=== PATIENT | female | born 1950 | race African-American/Black ===

== ENCOUNTER 2017-03-01 20:58 | Inpatient (IN) | payer MEDICARE, OTHER ==
[~2017-03-01] VITALS: Ht 160 cm; Wt 87.3 kg
[~2017-03-01 20:58] MED LIST: ASPI-535; BACL10TA; ESOM40CA; FLUT1DIS23; GABA300C16; HIGH BP MED PO; IPRA14.76; METO10TA96; MONT10TA21; SERT50TA6; SIMV20TA2; ZOLP5TAB; [UNRECOGNIZED DRUG - CODE]
[2017-03-01 21:00] VITALS: Ht 160 cm; Wt 87.3 kg
[2017-03-01] MEDS ORDERED: SOD CHLORIDE 0.9% 500 ML IV STA (21:13)
[2017-03-01 21:28] LABS: BASOPHIL # 0.1 10^3/ul (0.0-0.1); BASOPHILS % 1.1 % (0.0-2.0); EOSINOPHILS % 0.2 % (0.0-7.0); HEMATOCRIT 37.6 % (37.0-47.0); LYMPHOCYTES # 3.6 10^3/ul (0.8-2.9); LYMPHOCYTES % 33.9 % (15.0-51.0); MEAN CORPUSCULAR HGB CONC 31.9 g/dl (32.0-37.0); MEAN CORPUSCULAR VOLUME 100.3 fl (82.0-101.0); MEAN PLATELET VOLUME 10.7 fl (7.4-10.4); MONOCYTE # 0.8 10^3/ul (0.3-0.9); MONOCYTES % 7.8 % (0.0-11.0); NEUTROPHILS % 56.7 % (39.0-77.0); PLATELET COUNT 266 10^3/UL (140-415); RED BLOOD COUNT 3.75 10^6/ul (4.20-5.40); RED CELL DISTRIBUTION WIDTH 13.3 % (11.5-14.5); WHITE BLOOD COUNT 10.5 10^3/ul (4.8-10.8)
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
[2017-03-01 21:48] LABS: INR 0.94; PROTIME 12.6 Sec (12.2-14.2)
[2017-03-01 21:49] LABS: PARTIAL THROMBOPLASTIN TIME 27.6 Sec (25.0-35.0)
[2017-03-01 21:53] LABS: ALANINE AMINOTRANSFERASE 21 IU/L (13-69); ALBUMIN 3.9 g/dl (3.3-4.9); ALKALINE PHOSPHATASE 86 IU/L (42-121); ANION GAP 18 (8-16); ASPARTATE AMINO TRANSFERASE 15 IU/L (15-46); BILIRUBIN,INDIRECT 0.1 mg/dl (0-1.1); BILIRUBIN,TOTAL 0.1 mg/dl (0.2-1.3); BLOOD UREA NITROGEN 21 mg/dl (7-20); CALCIUM 9.1 mg/dl (8.4-10.2); CARBON DIOXIDE 26 mmol/L (21-31); CHLORIDE 106 mmol/L (97-110); CREATININE 0.89 mg/dl (0.44-1.00); GLUCOSE 99 mg/dl (70-220); POTASSIUM 3.8 mmol/L (3.5-5.1); SODIUM 146 mmol/L (135-144); TOTAL PROTEIN 6.9 g/dl (6.1-8.1)
[2017-03-01 21:55] LABS: ETHANOL < 10.0 mg/dl
[2017-03-01 22:08] LABS: T3 UPTAKE 31.1 % (23.5-40.5)
[2017-03-01 22:12] LABS: TROPONIN-I < 0.012 ng/ml (0.00-0.12)
--- NOTE | 2017-03-01 23:12 | RADRPT ---
PROCEDURE: CT Brain without contrast. CLINICAL INDICATION: Altered Mental Status TECHNIQUE: A multiplanar CT of the brain was performed on a CT scanner utilizing axial imaging fro m the skull base through the vertex without IV contrast. The CTDIvol is 43.22 mGy and the DLP is 85 0.134 mGycm. One or more of the following dose reduction techniques were utilized: Automated expos ure control, adjustment of the mA and/or kV according to patient size, use of iterative reconstructi on technique. COMPARISON: None FINDINGS: No evidence of intracranial hemorrhage or abnormal extra-axial fluid collection. Encephalomalacia of the right the frontal operculum and anterior temporal tip as well as right basal ganglia and thalam us. Extensive surrounding hypo attenuation of the right frontal lobe compatible with gliosis. Ex v acuo dilatation of the right lateral ventricle. Patchy periventricular low attenuation compatible with sequelae of chronic microvascular ischemic in jury. Mild prominence of the ventricles and subarachnoid spaces compatible with mild cerebral volum e loss. The basal cisterns, posterior fossa contents, brainstem, craniocervical junction, orbits, pituitary axis, paranasal sinuses, mastoid air cells, and calvarium are unremarkable. IMPRESSION: 1. No intracranial hemorrhage or acute intracranial abnormality. 2. Large area of encephalomalacia compatible with remote the right MCA territory infarct and ex vac uo dilatation of the right lateral ventricle. No new transcortical ischemic infarct. Early ischemic injury may be occult to CT imaging and diffusion weighted MRI may be considered as clinically warra nted. 3. Mild chronic microvascular ischemic changes and age related volume loss. RPTAT:AAJJ Physician Jamia Date Time Electronically viewed and signed by Physician Jamia on 03/01/2017 23:12 DELMIS/
--- NOTE | 2017-03-01 23:18 | RADRPT ---
PROCEDURE: XR Chest. CLINICAL INDICATION: Altered mental status TECHNIQUE: Single AP portable chest. COMPARISON: No prior Chest x-ray FINDINGS: The cardiomediastinal silhouette is within normal limits of size. The lungs are clear without pleur al effusion or focal consolidation. No pneumothorax. The osseous structures and soft tissues are unr emarkable. IMPRESSION: 1. No evidence for active cardiopulmonary disease. RPTAT:AAJJ Gulshan Cutler Physician Date Time Electronically viewed and signed by Gulshan Cutler Physician on 03/01/2017 23:17 DELMIS/
[2017-03-01] MEDS ORDERED: ONDANSETRON 4 MG INJ IV PRN (23:30)
[2017-03-01] MEDS ORDERED: ACETAMINOPHEN 325 MG TAB PO PRN (23:30)
[2017-03-02] MEDS ORDERED: ONDANSETRON 4 MG INJ IV PRN
[2017-03-02] MEDS ORDERED: ACETAMINOPHEN 325 MG TAB PO PRN
[2017-03-02] MEDS ORDERED: MAGNESIUM HYDROXIDE 30ML CUP PO PRN
[2017-03-02] MEDS ORDERED: NACL 0.9% 3 ML SYG IV SCH
[2017-03-02] MEDS: HYDROCODONE/APAP (5/325) TAB PO PRN ×2 (00:35→20:17)
[2017-03-02] MEDS: PANTOPRAZOLE (EC) 40 MG TAB PO SCH (06:05)
[2017-03-02 06:11] LABS: BASOPHIL # 0.1 10^3/ul (0.0-0.1); BASOPHILS % 1.3 % (0.0-2.0); EOSINOPHILS # 0.1 10^3/ul (0.0-0.5); EOSINOPHILS % 1.4 % (0.0-7.0); HEMOGLOBIN 11.5 g/dl (12.0-16.0); LYMPHOCYTES # 3.9 10^3/ul (0.8-2.9); MEAN CORPUSCULAR HEMOGLOBIN 31.3 pg (29.0-33.0); MEAN CORPUSCULAR HGB CONC 31.1 g/dl (32.0-37.0); MEAN CORPUSCULAR VOLUME 100.5 fl (82.0-101.0); MEAN PLATELET VOLUME 10.6 fl (7.4-10.4); MONOCYTE # 0.7 10^3/ul (0.3-0.9); MONOCYTES % 7.1 % (0.0-11.0); NEUTROPHILS % 48.8 % (39.0-77.0); PLATELET COUNT 248 10^3/UL (140-415); RED BLOOD COUNT 3.68 10^6/ul (4.20-5.40); RED CELL DISTRIBUTION WIDTH 13.5 % (11.5-14.5); WHITE BLOOD COUNT 9.5 10^3/ul (4.8-10.8)
[2017-03-02 06:34] LABS: ALBUMIN 3.4 g/dl (3.3-4.9); ALBUMIN/GLOBULIN RATIO 1.3; BILIRUBIN,INDIRECT 0.2 mg/dl (0-1.1); BILIRUBIN,TOTAL 0.2 mg/dl (0.2-1.3); CALCIUM 8.9 mg/dl (8.4-10.2); CHOL/HDL RATIO 2.4 RATIO; CREATININE 0.73 mg/dl (0.44-1.00); MAGNESIUM 2.2 mg/dl (1.7-2.5); POTASSIUM 4.3 mmol/L (3.5-5.1)
[2017-03-02 07:03] LABS: THYROID STIMULATING HORMONE 1.64 MIU/L (0.465-4.680)
--- NOTE | 2017-03-02 07:05 | RADRPT ---
PROCEDURE: Ultrasound examination of the carotid arteries with Doppler. CLINICAL INDICATION: Syncope. TECHNIQUE: Real time sonography, color Doppler and spectral the pattern analysis and velocity sarah urements were performed to evaluate both carotid arterial system. COMPARISON: None. FINDINGS: There is mild atherosclerotic plaque within the right carotid bifurcation region. There is mild ath erosclerotic plaque within the left carotid bifurcation region. There is no hemodynamically signifi cant carotid stenosis bilaterally. Antegrade flow is demonstrated within bilateral vertebral arteri es. RIGHTPSV (cm/s)EDV (cm/s)ICA/CCA ratio CCA39.5 10.9 1.0 PICA6.0 18.2 MICA32.2 10.4 ECA51.5 LEFTPSV (cm/s)EDV (cm/s)ICA/CCA ratio CCA45.7 15.9 1.4 PICA41.8 15.2 MICA64.2 22.9 ECA58.0 IMPRESSION: No hemodynamically significant carotid stenosis bilaterally. Antegrade flow within bilateral vertebral arteries. .Td Cobb MD, MD Date Time Electronically viewed and signed by .Td Cobb MD, MD on 03/02/2017 07:04 .T/
[2017-03-02 10:11] VITALS: TEMP 97.9
[2017-03-02] MEDS: ENOXAPARIN 40 MG/0.4 ML SYG SC SCH (10:44)
[2017-03-02] MEDS: GABAPENTIN 300 MG CAP PO SCH (10:45)
[2017-03-02] MEDS: MONTELUKAST 10 MG TAB PO SCH (10:45)
[2017-03-02] MEDS: DOCUSATE SODIUM 100 MG CAP PO PRN (10:45)
[2017-03-02] MEDS: ASPIRIN (EC) 81 MG TAB PO SCH (10:45)
--- NOTE | 2017-03-02 12:30 | RADRPT ---
Echocardiogram Report Patient Name: LUIZ BRO Gender: Female Date: 1950 Study Date: 02-Mar-2017 Pillowcase Maker: Sherif [facility] Location: -1 Ref. Physician: TIFFANIE MACIAS Quality: Adequate Procedures: Transthoracic echocardiogram with complete 2D, M-Mode, and doppler examination. Indications: Syncope. 2D/M Mode Doppler Measurement Value Normal Ranges Measurement Value Normal Ranges LVIDd 2D 3.9 3.5 - 5.6 cm AV Peak Jelani 1.3 m/sec LVIDs 2D 2.7 2.1 - 4.1 cm AV Peak PG 7.0 mmHg FS 2D 30.9 % LVOT Peak Jelani 0.9 m/sec LVPWd 2D 1.3 0.6 - 1.1 cm LVOT Peak PG 3.0 mmHg IVSd 2D 1.3 0.6 - 1.1 cm MV E Peak Jelani 0.8 m/sec IVS/LVPW 2D 1.0 MV A Peak Jelani 0.8 m/sec AoR Diam 2D 2.5 2.0 - 3.7 cm MV E/A 1.0 LA/Ao 2D 1 0 - 1 MV Decel Time 204 msec EDV 2D 59.8 cm3 MV E/A 1.0 ESV 2D 19.7 cm3 LA Dimen 2D 2.8 2.3 - 4.0 cm Findings Left Ventricle: Normal left ventricular systolic function. Normal left ventricular cavity size. Mild concentric left ventricular hypertrophy. Ejection fraction is visually estimated at 60 %. Abnormal Diastolic Function. Right Ventricle: Normal right ventricular size. Normal right ventricular systolic function. Left Atrium: The left atrium is normal in size. Right Atrium: The right atrium is normal in size. Mitral Valve: Mild mitral leaflet calcification. Mild mitral annular calcification. Trace mitral regurgitation. Aortic Valve: No significant aortic stenosis or insufficiency. Aortic sclerosis without stenosis. Tricuspid Valve: Normal appearance of the tricuspid valve. Unable to obtain RVSP due to minimal presence of tricuspid regurgitation. There is trace tricuspid regurgitation. Pulmonic Valve: Pulmonic valve not well visualized. There is trace pulmonic regurgitation. Pericardium: Trivial pericardial effusion. Aorta: Normal aortic root. IVC: Normal size and poor respiratory collapse consistent with elevated right atrial pressure. Conclusions 1.Normal left ventricular systolic function. Normal left ventricular cavity size. Mild concentric left ventricular hypertrophy. Ejection fraction is visually estimated at 60 %. Abnormal Diastolic Function. 2.Mild mitral leaflet calcification. Mild mitral annular calcification. Trace mitral regurgitation. 3.No significant aortic stenosis or insufficiency. Aortic sclerosis without stenosis. 4.Normal appearance of the tricuspid valve. Unable to obtain RVSP due to minimal presence of tricuspid regurgitation. There is trace tricuspid regurgitation. Electronically Signed By: Gurvinder Rodgers 02-Mar-2017 12:29:44 -0700 Patient Name: LUIZ BRO Study Date: 02-Mar-2017 [id number]
[2017-03-02 13:29] LABS: ADD UMIC YES; UR ASCORBIC ACID 40 mg/dL (NEGATIVE); UR BILIRUBIN (Dip) NEGATIVE (NEGATIVE); UR BLOOD (Dip) NEGATIVE (NEGATIVE); UR CLARITY SLIGHTLY CLOUDY (CLEAR); UR COLOR YELLOW (YELLOW); UR GLUCOSE (Dip) NEGATIVE (NEGATIVE); UR KETONES (Dip) NEGATIVE (NEGATIVE); UR LEUKOCYTE ESTERASE (Dip) NEGATIVE Leu/ul (NEGATIVE); UR NITRITE (Dip) POSITIVE (NEGATIVE); UR RBC 0 /HPF (0-5); UR SPECIFIC GRAVITY (Dip) 1.014 (1.003-1.030); UR TOTAL PROTEIN (Dip) NEGATIVE (NEGATIVE); UR UROBILINOGEN (Dip) NEGATIVE (NEGATIVE)
[2017-03-02 13:42] LABS: OPIATES Positive (NEGATIVE)
[2017-03-02 13:50] LABS: BARBITURATES Negative (NEGATIVE); BENZODIAZEPINES Negative (NEGATIVE); CANNABINOIDS Negative (NEGATIVE); COCAINE Negative (NEGATIVE)
[2017-03-02 16:44] VITALS: BP 163/74; PULSE 88; RESP 18
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
[2017-03-02 21:47] VITALS: BP 153/58; RESP 20
[2017-03-02 22:31] VITALS: PULSE 69
[2017-03-02] MEDS: morphine 2 MG INJ IV PRN (22:52)
[2017-03-02] MEDS: LORAZEPAM 2 MG INJ IV PRN (22:52)
[2017-03-02 23:58] VITALS: BP 162/81; RESP 20
[2017-03-03] VITALS (10 sets, daily range): BP systolic 133–157; BP diastolic 66–117; PULSE 67–94; RESP 16–21
[2017-03-03] MEDS: PANTOPRAZOLE (EC) 40 MG TAB PO SCH (06:03)
[2017-03-03] MEDS: ASPIRIN (EC) 81 MG TAB PO SCH (09:09)
[2017-03-03] MEDS: MONTELUKAST 10 MG TAB PO SCH (09:09)
[2017-03-03] MEDS: GABAPENTIN 300 MG CAP PO SCH (09:09)
[2017-03-03] MEDS: ENOXAPARIN 40 MG/0.4 ML SYG SC SCH (09:10)
--- NOTE | 2017-03-03 17:22 | RADRPT ---
PROCEDURE: MRI Brain without contrast. CLINICAL INDICATION: Syncope. TECHNIQUE: An MRI of the brain was performed utilizing the following sequences: Sagittal and axial T1 weighted, axial T2 weighted, axial diffusion weighted with ADC mapping, coronal GRE, and axial F LAIR. COMPARISON: Brain CT 03/01/2017. FINDINGS: Multiple images are degraded by motion. Area of encephalomalacia of the right the frontal lobe/operculum and anterior temporal lobe as well as right basal ganglia and thalamus with associated surrounding gliosis likely represents sequela of prior infarct in the right middle cerebral artery distribution. There is associated ex vacuo dilata tion of the right lateral ventricle. There is associated mild surrounding gradient susceptibility ar tifact indicative of hemosiderin. No diffusion weighted abnormalities are seen to suggest the presence of acute ischemia or recent inf arct. No hypointense signal abnormalities are seen on the GRE images to suggest the presence of blo od degradation products. There is no evidence of intracranial hemorrhage, mass effect, or midline s hift. No extra-axial fluid collections are seen. The ventricles and sulci are otherwise mildly enlar ged indicative of volume loss. There are additional mild foci of T2 FLAIR hyperintensity in the white matter, which are nonspecific in etiology but likely reflect chronic small vessel ischemic changes. No abnormal intracranial vascular flow void is noted. The visualized paranasal sinuses demonstrate m ild scattered mucosal thickening. IMPRESSION: 1. Suboptimal motion degraded study. No acute intracranial hemorrhage, infarction or mass. 2. Large area of encephalomalacia likely represent sequela of old infarct in the right MCA distribu tion with associated hemosiderin. 3. Mild chronic small vessel ischemic changes. 4. Mild generalized cerebral volume loss. RPTAT: AA .Gino Covington MD, MD Date Time Electronically viewed and signed by .Gino Covington MD, MD on 03/03/2017 17:21 .N/
[2017-03-03] MEDS: CEFTRIAXONE 1 GM/50 ML (PMX) 50 ML IVPB SCH (18:00)
[2017-03-03] MEDS: morphine 2 MG INJ IV PRN (19:44)
--- NOTE | 2017-03-03 20:44 | PN ---
DATE: SUBJECTIVE DATA: The patient is currently undergoing MRI of the brain. The patient initially presented with encephalopathy and syncope. Noted the urine culture results, which was positive. The UA was markedly positive. In addition, awaiting Cardiology input as the patient has been experiencing on and off chest pain. The patient is slightly hypertensive blood pressure in the 150s. PHYSICAL EXAMINATION: VITAL SIGNS: Temperature 99.3. She had a low-grade fever. Pulse 81, respirations 16, blood pressure 154/170. Saturation is 94-99 percent. The patient is currently undergoing MRI, so physical exam to follow. MEDICATIONS: 1. Rocephin I started today 1 g q.24 hours. 2. Lovenox 40 mg subcu daily. 3. Aspirin 81 mg daily. 4. Neurontin 300 daily. 5. Singular 10 mg daily. 6. Protonix 20 mg daily. 7. Ativan 0.5 q.6h p.r.n. 8. Zofran p.r.n. 9. Tylenol p.r.n. 10. Spencer p.r.n. 11. Morphine p.r.n. 12. Colace p.r.n. 13. Milk of magnesia p.r.n. MRI again is pending as patient is currently having the MRI done. ASSESSMENT AND PLAN: This is a 66-year-old, female with a history of cerebrovascular accident with left hemiplegia, nicotine dependence, he still smokes, chronic obstructive pulmonary disease, hypertension, presenting with syncopal episode. 1. Syncope. We will rule out acute cerebrovascular accident. MRI was ordered. Carotid ultrasound was unremarkable. Continue aspirin. 2. Urinary tract infection. Patient was started on Rocephin. Follow up urine culture results. 3. Intermittent episodes of chest pain. Cardiology to follow. Noted 2D echo results. 4. Age-appropriate cancer screening is recommended. Continue Protonix for gastrointestinal prophylaxis and Lovenox for deep venous thrombosis prophylaxis. 5. Chronic obstructive pulmonary disease. Advised to stop smoking. Continue singular breathing treatment as needed. 6. Physical therapy is tolerated. 7. Hypertension. May start low-dose beta-dinorah or ARB. 8. Chronic pain syndrome. Pain control as needed. DISPOSITION: To detention facility. Dictated By: Mahesh Grande MD /javier/christiano /Document#: [id number]
[2017-03-04] VITALS (14 sets, daily range): BP systolic 117–149; BP diastolic 59–86; PULSE 59–101; RESP 18–20
[2017-03-04] MEDS: PANTOPRAZOLE (EC) 40 MG TAB PO SCH (06:26)
[2017-03-04] MEDS: GABAPENTIN 300 MG CAP PO SCH (09:06)
[2017-03-04] MEDS: LOSARTAN 50 MG TAB PO SCH (09:08)
[2017-03-04] MEDS: ASPIRIN (EC) 81 MG TAB PO SCH (09:08)
[2017-03-04] MEDS: MONTELUKAST 10 MG TAB PO SCH (09:09)
[2017-03-04] MEDS: DOCUSATE SODIUM 100 MG CAP PO PRN (09:09)
[2017-03-04] MEDS: ENOXAPARIN 40 MG/0.4 ML SYG SC SCH (09:12)
--- NOTE | 2017-03-04 12:00 | CONS ---
DATE OF ADMISSION: 03/03/2017 DATE OF CONSULTATION: 03/04/2017 REASON FOR CONSULTATION: Chest pain. CHIEF COMPLAINT: Weakness, chest pain, possible syncope. HISTORY OF PRESENT ILLNESS: Thank you, for asking me to see the patient. Discussion with the staff, review of the chart, discussion with Dr. Sampson. with history of CVA, , hypertension, smoking, COPD, chronic pain syndrome, who lives in [facility]. The patient was brought in because apparently 2 days ago, was noted to have a "possible syncopal episode." Patient has had a workup including a CT scan of the head and monitored on telemetry and no significant new abnormality was seen. Telemetry strip was also reviewed. Patient appears to be in sinus rhythm. However, patient has also been complaining of chest pain, epigastric, substernal area. Could not explain , no relieving factor to it. Not appeared to be related to exertion, but patient does not have activity much. Per patient, has had the chest pain for months now. PAST MEDICAL HISTORY: Hypertension, CVA, COPD, smoker, dyslipidemia. SOCIAL HISTORY: Actively smokes. Lives in a rehab. FAMILY HISTORY: Denies any early coronary artery disease in the family. MEDICATION: As per medical reconciliation, personally reviewed, which include: 1. Combivent. 2. Bactroban. 3. Simvastatin. 4. Aspirin. 5. Gabapentin. 6. Singulair. ALLERGIES: NO REPORTED DRUG ALLERGIES. REVIEW OF SYSTEMS: As above mentioned. PHYSICAL EXAMINATION: VITAL SIGNS: Temperature 98.2, heart rate of 80, blood pressure 149/59, respiratory rate of 20, satting 97 percent. HEENT: Normocephalic, atraumatic. Pupils are equal and round. CARDIAC: Regular rate and rhythm. Systolic murmur. LUNGS: With no wheezes or rhonchi. ABDOMEN: Soft, nontender. EXTREMITIES: With trace lower extremity edema. NEUROLOGIC: Awake, alert, oriented x3, with left-sided weakness of upper and lower extremities. PSYCHIATRIC: Calm and pleasant. LABORATORY: Troponin was negative x1. Sodium 147, potassium 4.3, BUN of 19, creatinine of 0.73, glucose of 74. Albumin is 3.4. TSH is 1.6. LDL of 77, HDL of 63. EKG showed normal sinus rhythm, . Echocardiogram showed normal LV systolic function, on personal review. IMPRESSION AND PLAN: 1. Chest pain, recurrent, rule out coronary artery disease. 2. Possible syncope. Currently has resolved with no evidence of significant arrhythmia noted. 3. History of cerebrovascular accident. 4. Hypertension. 5. Chronic obstructive pulmonary disease. 6. Dyslipidemia, controlled. 7. Smoking. RECOMMENDATION: Aspirin will be continued. Patient is advised to stop smoking. Patient's lipid panel under good control now. I will order Lexiscan stress test today to rule out obstructive coronary artery disease. Dictated By: Gurvinder Rodgers MD /javier/[email or web address] /Document#: [id number] ; Dr. Sampson
[2017-03-04] MEDS ORDERED: BISACODYL (EC) 5 MG TAB PO ONE (13:30)
[2017-03-04] MEDS ORDERED: NA PHOSPHATE/BIPHOS 133 ML ENEMA PR ONE (13:30)
[2017-03-04] MEDS: CEFTRIAXONE 1 GM/50 ML (PMX) 50 ML IVPB SCH (15:12)
--- NOTE | 2017-03-04 15:58 | PN ---
DATE: 03/04/2017 This patient has been complaining of chest pain for few months now. The patient definitely has risk factors. In addition, patient is complaining of constipation. No bowel movement since admission per patient. In addition patient's urine culture came back as E coli. Sensitive to cefazolin and cefotaxime. This patient was placed on Rocephin. PHYSICAL EXAM: VITAL SIGNS: Temperature is 98, now afebrile with a T-max yesterday of 99.3. Pulse 75-98, respirations 18, blood pressure 130/59, saturation 99 percent on 2 L. GENERAL: Patient is in no acute distress. Normocephalic, atraumatic. HEART: S1 and S2. Regular rate. LUNGS: Clear. ABDOMEN: Soft, slightly distended. Slight discomfort on deep palpation. EXTREMITIES: No clubbing, cyanosis, or edema. Left-sided weakness is noted. This is chronic. LABORATORY AND DIAGNOSTIC DATA: Urine culture shows E coli sensitive to cefazolin and cefotaxime. On 03/02 white count was 9.5, hemoglobin 11.5, hematocrit 37, platelets 248, 41 percent. Chemistry, sodium 140, potassium 4.6, bicarb 27, BUN 19, creatinine 0.17, glucose of 94, hemoglobin A1c was 5.7, cholesterol 156, LDL 77, HDL 63, TSH is normal at 1.6. UA was positive on admission. Tox screen was only positive for opiates. MRI of the brain shows suboptimal motion degraded study. No acute intracranial hemorrhage, infarction or mass. Large areas of encephalomalacia likely represent sequela of old infarct in the right MCA distribution with associated hemosiderin. Mild chronic small vessel ischemic changes. Marginalized cerebellar volume loss. MEDICATIONS: 1. Cozaar 50 mg daily. 2. Rocephin 1 acute 24 hours. 3. Lovenox 4 mg subcu daily. 4. Aspirin , 5. Singulair 10 mg daily. 6. Protonix 20 mg daily. 7. Ativan 0.5 q.6h. IV p.r.n.. 8. Zofran p.r.n. 9. Tylenol p.r.n. 10. Morphine p.r.n. 11. Colace p.r.n 12. Milk of Magnesia p.r.n. ASSESSMENT AND PLAN: This is a 66-year-old, female with history of cerebrovascular accident with left hemiplegia, nicotine dependency, chronic obstructive pulmonary disease, hypertension present with syncopal episode. 1. Syncopal episode. No evidence of arrhythmia. MRI of the brain shows old stroke as well. No report of seizures. Continue medical management. Continue aspirin and control risk factors. Smoking cessation is advised. 2. Urinary tract infection. Continue Rocephin and may switch to Keflex upon discharge. 3. Chest pain. Patient with risk factors. Nuclear stress test to be done in the a.m. 4. History of chronic obstructive pulmonary disease, compensated. Advised the patient to stop smoking. 5. Hypertension, on losartan. Blood pressures under good control. 6. Physical therapy is tolerated. 7. Constipation. Patient to be given a [place] enema. Send stool for occult blood. Patient has slight anemia. Will follow. Dictated By: Mahesh Grande MD /javier/ramon /Document#: [id number] PALLAVI
[2017-03-04] MEDS: LORAZEPAM 2 MG INJ IV PRN (22:59)
[2017-03-05] VITALS (8 sets, daily range): BP systolic 120–151; BP diastolic 60–77; PULSE 79–93; RESP 18–19
[2017-03-05] MEDS: PANTOPRAZOLE (EC) 40 MG TAB PO SCH (06:00)
[2017-03-05 07:32] LABS: RETICULOCYTE COUNT % 2.1 % (0.5-1.5)
[2017-03-05 07:33] LABS: BASOPHIL # 0.1 10^3/ul (0.0-0.1); BASOPHILS % 1.3 % (0.0-2.0); EOSINOPHILS % 0.1 % (0.0-7.0); HEMATOCRIT 40.7 % (37.0-47.0); HEMOGLOBIN 12.9 g/dl (12.0-16.0); LYMPHOCYTES # 2.9 10^3/ul (0.8-2.9); LYMPHOCYTES % 32.1 % (15.0-51.0); MEAN CORPUSCULAR HEMOGLOBIN 32.3 pg (29.0-33.0); MEAN CORPUSCULAR HGB CONC 31.7 g/dl (32.0-37.0); MEAN PLATELET VOLUME 10.6 fl (7.4-10.4); MONOCYTE # 0.9 10^3/ul (0.3-0.9); MONOCYTES % 9.6 % (0.0-11.0); NEUTROPHILS % 56.5 % (39.0-77.0); PLATELET COUNT 256 10^3/UL (140-415); RED BLOOD COUNT 3.99 10^6/ul (4.20-5.40); RED CELL DISTRIBUTION WIDTH 12.7 % (11.5-14.5)
[2017-03-05 07:50] LABS: IRON 59 ug/dl (35-150)
[2017-03-05 08:00] LABS: TOTAL IRON BINDING CAPACITY 246 ug/dl (241-421)
[2017-03-05 08:14] LABS: CREATINE KINASE 327 IU/L (23-200)
[2017-03-05 08:20] LABS: PHOSPHORUS 2.9 mg/dl (2.5-4.9)
[2017-03-05 08:27] LABS: CK-MB 2.85 ng/ml (0.0-2.4)
[2017-03-05 08:28] LABS: TROPONIN-I < 0.012 ng/ml (0.00-0.12)
[2017-03-05 09:05] LABS: ALBUMIN 3.8 g/dl (3.3-4.9); ALBUMIN/GLOBULIN RATIO 1.11; BILIRUBIN,INDIRECT 0.2 mg/dl (0-1.1); BILIRUBIN,TOTAL 0.2 mg/dl (0.2-1.3); CALCIUM 9.8 mg/dl (8.4-10.2); CREATININE 0.69 mg/dl (0.44-1.00); TOTAL PROTEIN 7.2 g/dl (6.1-8.1)
[2017-03-05] MEDS: MONTELUKAST 10 MG TAB PO SCH (09:30)
[2017-03-05] MEDS: LOSARTAN 50 MG TAB PO SCH (09:30)
[2017-03-05] MEDS: GABAPENTIN 300 MG CAP PO SCH (09:30)
[2017-03-05] MEDS: ASPIRIN (EC) 81 MG TAB PO SCH (09:30)
[2017-03-05] MEDS: ENOXAPARIN 40 MG/0.4 ML SYG SC SCH (09:32)
[2017-03-05] MEDS ORDERED: REGADENOSON 0.4 MG/5 ML SYG ONE (11:38)
--- NOTE | 2017-03-05 14:47 | RADRPT ---
PROCEDURE: Nuclear medicine myocardial perfusion scan CLINICAL INDICATION: Chest pain TECHNIQUE: 30.0 mCi of technetium 99m Cardiolite was administered for the stress study. 10.0 mCi of technetium 99m Cardiolite was administered for the resting study. The patient was stressed with 0 .4 mg of Lexiscan. Images were reviewed in the short axis, vertical long axis, and horizontal long axis views. Wall motion was assessed and ejection fraction was calculated as well. Images were revi ewed on a high-resolution PACS workstation. COMPARISON: None available FINDINGS: Left ventricular size is within normal limits. The stress tomographic images demonstrate a normal pattern of perfusion. The resting tomographic images demonstrate a similar pattern. There is no ev idence for reversible ischemia. Wall motion is normal. The ejection fraction is calculated at 88%. IMPRESSION: 1. Negative myocardial perfusion scan. 2. There is no evidence for reversible ischemia. 3. Normal wall motion with normal ejection fraction of 88%. RPTAT: [facility] Physician Missy Date Time Electronically viewed and signed by Physician Missy on 03/05/2017 14:47 /
--- NOTE | 2017-03-05 14:54 | CONS ---
Date/Time of Note Date/Time of Note DATE: 03/05/17 TIME: 14:53 Consult Date/Type/Reason Admit Date/Time Mar 03, 2017 at 14:54 Initial Consult Date Type of Consultation: CARDIOLOGY Subjective D/W STAFF and DR Grande rhythm was reviewed. pt remains in NSR. no more chest pain or pressure or palpitations objective: Gen no acute distress HEENT NCAT. pupils are equal;. Neck no JVD. no stridor CV RRR. systolic murmur pulm No wheezing GI obese soft NT ND Neuro left sided weakness. awake and alert psych: calm now. Objective Vital Signs Date Time Temp Pulse Resp B/P Pulse Ox O2 Delivery O2 Flow Rate FiO2 03/05/17 08:22 92 03/05/17 07:52 98.3 19 122/60 97 03/04/17 11:33 2.0 03/02/17 16:44 Room Air Intake and Output 03/04/17 03/04/17 03/05/17 15:00 23:00 07:00 Intake Total 550 ml 250 ml Balance 550 ml 250 ml Results/Medications Result Diagram: 03/05/17 0709 03/05/17 0709 Results 24 hrs Laboratory Tests Test 03/05/17 07:09 White Blood Count 9.0 Red Blood Count 3.99 L Hemoglobin 12.9 Hematocrit 40.7 Mean Corpuscular Volume 102.0 H Mean Corpuscular Hemoglobin 32.3 Mean Corpuscular Hemoglobin Concent 31.7 L Red Cell Distribution Width 12.7 Platelet Count 256 Mean Platelet Volume 10.6 H Neutrophils % 56.5 Lymphocytes % 32.1 Monocytes % 9.6 Eosinophils % 0.1 Basophils % 1.3 Nucleated Red Blood Cells % 0.0 Neutrophils # (Manual) 5.1 Lymphocytes # 2.9 Monocytes # 0.9 Eosinophils # 0.0 Basophils # 0.1 Nucleated Red Blood Cells # 0.0 Absolute Reticulocyte Count 0.085 Percent Reticulocyte Count 2.1 H Sodium Level 145 H Potassium Level 4.0 Chloride Level 110 Carbon Dioxide Level 23 Anion Gap 16 Blood Urea Nitrogen 17 Creatinine 0.69 Glucose Level 93 Calcium Level 9.8 Phosphorus Level 2.9 Magnesium Level 2.0 Iron Level 59 Total Iron Binding Capacity 246 Percent Iron Saturation 24 Total Bilirubin 0.2 Direct Bilirubin 0.00 Indirect Bilirubin 0.2 Aspartate Amino Transf (AST/SGOT) 34 Alanine Aminotransferase (ALT/SGPT) 39 Alkaline Phosphatase 81 Creatine Kinase 327 H Creatine Kinase Index 0.9 Creatinine Kinase MB (Mass) 2.85 H Troponin I < 0.012 Total Protein 7.2 Albumin 3.8 Globulin 3.40 H Albumin/Globulin Ratio 1.11 Vitamin B12 Level 297 Medications Current Medications Lorazepam (Ativan) 0.5 mg Q6H PRN IV ANXIETY Last administered on 03/04/17 22: 59; Admin Dose 0.5 MG; Start 03/02/17 at 00:00 Ondansetron HCl (Zofran Inj) 4 mg Q6H PRN IV NAUSEA AND/OR VOMITING; Start at 00:00 Acetaminophen (Tylenol Tab) 650 mg Q6H PRN PO PAIN LEVEL 1-3 OR FEVER Last administered on 03/03/17 20:46; Admin Dose 650 MG; Start 03/02/17 at 00:00 Acetaminophen/ Hydrocodone Bitart ([place] (5/325)) 1 tab Q6H PRN PO PAIN LEVEL 4 -6 Last administered on 03/02/17 20:17; Admin Dose 1 TAB; Start 03/02/17 at 00: 00 Morphine Sulfate (morphine) 2 mg Q4H PRN IV PAIN LEVEL 7-10 Last administered on 03/03/17 19:44; Admin Dose 2 MG; Start 03/02/17 at 00:00 Docusate Sodium (Colace) 100 mg Q12H PRN PO CONSTIPATION Last administered on 09:09; Admin Dose 100 MG; Start 03/02/17 at 00:00 Magnesium Hydroxide (Milk Of Mag) 30 ml DAILY PRN PO CONSTIPATION; Start at 00:00 Pantoprazole (Protonix Tab) 40 mg DAILY@06 PO Last administered on 03/04/17 06 :26; Admin Dose 40 MG; Start 03/02/17 at 06:00 Enoxaparin Sodium (Lovenox) 40 mg DAILY SC Last administered on 03/05/17 09:32 ; Admin Dose 40 MG; Start 03/02/17 at 09:00 Aspirin (Halfprin) 81 mg DAILY PO Last administered on 03/05/17 09:30; Admin Dose 81 MG; Start 03/02/17 at 09:00 Gabapentin (Neurontin) 300 mg DAILY PO Last administered on 03/05/17 09:30; Admin Dose 300 MG; Start 03/02/17 at 09:00 Montelukast Sodium 10 mg 10 mg DAILY PO Last administered on 03/05/17 09:30; Admin Dose 10 MG; Start 03/02/17 at 09:00 Ceftriaxone Sodium (Rocephin) 50 ml @ 100 mls/hr Q24H IVPB Last administered on 03/04/17 15:12; Admin Dose 100 MLS/HR; Start 03/03/17 at 16:00 Losartan Potassium (Cozaar) 50 mg DAILY PO Last administered on 03/05/17 09:30 ; Admin Dose 50 MG; Start 03/04/17 at 09:00 Assessment/Plan Chief Complaint/Hosp Course 1. syncope: etiology unclear. no obvious rhythm abn on tele lexiscan is pending 2. chest pain: lexiscan today 3. HTN; well controlled now 4. hx CVA on antiplatelet Love Rodgers MD Problems: LOVE RODGERS MD Mar 05, 2017 14:54
[2017-03-05] MEDS: CEFTRIAXONE 1 GM/50 ML (PMX) 50 ML IVPB SCH (15:08)
[2017-03-05] MEDS: morphine 2 MG INJ IV PRN (15:16)
[2017-03-05] MEDS ORDERED: CYANOCOBALAMIN 1000 MCG INJ IM ONE (17:00)
[2017-03-05] MEDS ORDERED: ZOLPIDEM 5 MG TAB PO PRN (22:00)
[2017-03-06] VITALS (7 sets, daily range): BP systolic 115–143; BP diastolic 55–78; PULSE 76–84; RESP 18–20
--- NOTE | 2017-03-06 04:25 | PN ---
DATE: 03/05/2017 SUBJECTIVE DATA: The patient is seen, nuclear stress test came back with no evidence of ischemia. The patient has had a few bowel movements. The patient received stool softeners. Clinically improving. OBJECTIVE DATA: VITAL SIGNS: Temperature 98.3, pulse 92, respirations 19, blood pressure 122/70, and saturations 97 percent. GENERAL: The patient is in no acute distress. HEENT: No throat . The patient is pale. CARDIOVASCULAR: S1, S2. Regular rate. LUNGS: Clear. ABDOMEN: Soft, nontender. EXTREMITIES: No clubbing, cyanosis, or edema. Left-sided weakness is noted. LABS: White count is 9, hemoglobin 12.9, hematocrit 41, platelet count of 256, neutrophils 57 percent, 30 percent. MCV is high at 102, retic count only 2.1, slightly high. Sodium 145, potassium 4.0, bicarb 23, BUN 17, creatinine 0.6, glucose of 93. The patient's iron levels are normal, but B12 is low at 297. Supplements will be given. This patient has macrocytic anemia. The urine was positive. The patient's urine culture did reveal E. coli sensitive to Rocephin and cephalosporin. MEDICATIONS: 1. Cozaar 50 mg daily. 2. Rocephin 1 g q. 24 hour. 3. Lovenox 4 mg subcu daily. 4. Aspirin 81 daily. 5. Neurontin 300 daily. 6. Singulair 10 mg daily. 7. Protonix mg daily. 8. Ativan 0.5 q. 6 hour p.r.n., 9. Zofran p.r.n. 10. Tylenol p.r.n. 11. [place] p.r.n. 12. Morphine p.r.n. 13. Cholestyramine. 14. Magnesia p.r.n. ASSESSMENT AND PLAN: This is a 66-year-old, female with history of cerebrovascular accident (CVA) with left hemiplegia, nicotine dependency, chronic obstructive pulmonary disease (COPD), hypertension, presented with syncopal episode. 1. Syncopal episode. Differential diagnosis may include orthostatic hypotension, seizure versus transient ischemic attack (TIA). The workup so far revealed dehydration and urinary tract infection (UTI) status post treatment. 2. Chest pain, questionable angina. Nuclear stress is negative. Continue medical management. May consider long-acting nitroglycerin if symptoms persist. 3. Urinary tract infection. Continue Rocephin and switched to oral Keflex upon discharge. 4. Chronic pain syndrome. Continue Neurontin and p.r.n. opioids. 5. History of cerebrovascular accident (CVA), old with evidence of encephalomalacia. Continue controlling risk factors including avoiding smoking. 6. Chronic obstructive pulmonary disease (COPD), compensated on Singular. 7. Hypertension, controlled on losartan. 8. Physical therapy as tolerated. 9. Constipation, which responded to stool softeners. Advised on high-fiber diet. 10. Macrocytic anemia. B12 injection will be prescribed in- house and then oral supplements will be provided. 11. Age-appropriate cancer screening can be done as an outpatient. DISPOSITION: To longterm facility in the a.m. Case discussed with Dr. Rodgers. We will follow. Dictated By: Mahesh Grande MD /javier/janet /Document#: [id number]
[2017-03-06] MEDS: PANTOPRAZOLE (EC) 40 MG TAB PO SCH (06:35)
[2017-03-06] MEDS: GABAPENTIN 300 MG CAP PO SCH (08:55)
[2017-03-06] MEDS: ENOXAPARIN 40 MG/0.4 ML SYG SC SCH (08:55)
[2017-03-06] MEDS: ASPIRIN (EC) 81 MG TAB PO SCH (08:56)
[2017-03-06] MEDS: MONTELUKAST 10 MG TAB PO SCH (08:56)
[2017-03-06] MEDS: LOSARTAN 50 MG TAB PO SCH (08:56)
--- NOTE | 2017-03-06 12:09 | PDOCDIS ---
Discharge Instructions CONDITION Patient Condition: Stable HOME CARE INSTRUCTIONS: Diet Instructions: 2gm NaSpecial Diet: CARDIAC ACTIVITY: Activity Restrictions: Slowly Increase Activity FOLLOW UP/APPOINTMENTS Follow-up Plan discharge to [facility], see reconciliation. TIFFANIE MACIAS MD Mar 06, 2017 12:09
--- NOTE | 2017-03-06 14:44 | CONS ---
Date/Time of Note Date/Time of Note DATE: 03/06/17 TIME: 14:43 Consult Date/Type/Reason Admit Date/Time Mar 03, 2017 at 14:54 Type of Consultation: CARDIOLOGY Subjective D/W STAFF rhythm was reviewed. pt remains in NSR. no more chest pain or pressure or palpitations objective: Gen no acute distress HEENT NCAT. pupils are equal;. Neck no JVD. no stridor CV RRR. systolic murmur pulm No wheezing GI obese soft NT ND Neuro left sided weakness. awake and alert psych: calm now. lexiscan: 1. Negative myocardial perfusion scan. 2. There is no evidence for reversible ischemia. 3. Normal wall motion with normal ejection fraction of 88%. Objective Vital Signs Date Time Temp Pulse Resp B/P Pulse Ox O2 Delivery O2 Flow Rate FiO2 03/06/17 12:00 98.0 87 18 118/58 98 03/06/17 00:00 Room Air 03/04/17 11:33 2.0 Intake and Output 03/05/17 03/05/17 03/06/17 15:00 23:00 07:00 Intake Total 600 ml 450 ml Balance 600 ml 450 ml Results/Medications Result Diagram: 03/05/17 0709 03/05/17 0709 Medications Current Medications Lorazepam (Ativan) 0.5 mg Q6H PRN IV ANXIETY Last administered on 03/04/17 22: 59; Admin Dose 0.5 MG; Start 03/02/17 at 00:00 Ondansetron HCl (Zofran Inj) 4 mg Q6H PRN IV NAUSEA AND/OR VOMITING; Start at 00:00 Acetaminophen (Tylenol Tab) 650 mg Q6H PRN PO PAIN LEVEL 1-3 OR FEVER Last administered on 03/03/17 20:46; Admin Dose 650 MG; Start 03/02/17 at 00:00 Acetaminophen/ Hydrocodone Bitart ([place] (5/325)) 1 tab Q6H PRN PO PAIN LEVEL 4 -6 Last administered on 03/02/17 20:17; Admin Dose 1 TAB; Start 03/02/17 at 00: 00 Morphine Sulfate (morphine) 2 mg Q4H PRN IV PAIN LEVEL 7-10 Last administered on 03/05/17 15:16; Admin Dose 2 MG; Start 03/02/17 at 00:00 Docusate Sodium (Colace) 100 mg Q12H PRN PO CONSTIPATION Last administered on 09:09; Admin Dose 100 MG; Start 03/02/17 at 00:00 Magnesium Hydroxide (Milk Of Mag) 30 ml DAILY PRN PO CONSTIPATION; Start at 00:00 Pantoprazole (Protonix Tab) 40 mg DAILY@06 PO Last administered on 03/06/17 06 :35; Admin Dose 40 MG; Start 03/02/17 at 06:00 Enoxaparin Sodium (Lovenox) 40 mg DAILY SC Last administered on 03/06/17 08:55 ; Admin Dose 40 MG; Start 03/02/17 at 09:00 Aspirin (Halfprin) 81 mg DAILY PO Last administered on 03/06/17 08:56; Admin Dose 81 MG; Start 03/02/17 at 09:00 Gabapentin (Neurontin) 300 mg DAILY PO Last administered on 03/06/17 08:55; Admin Dose 300 MG; Start 03/02/17 at 09:00 Montelukast Sodium 10 mg 10 mg DAILY PO Last administered on 03/06/17 08:56; Admin Dose 10 MG; Start 03/02/17 at 09:00 Ceftriaxone Sodium (Rocephin) 50 ml @ 100 mls/hr Q24H IVPB Last administered on 03/05/17 15:08; Admin Dose 100 MLS/HR; Start 03/03/17 at 16:00 Losartan Potassium (Cozaar) 50 mg DAILY PO Last administered on 03/06/17 08:56 ; Admin Dose 50 MG; Start 03/04/17 at 09:00 Zolpidem Tartrate (Ambien) 5 mg HS PRN PO INSOMNIA Last administered on 22:13; Admin Dose 5 MG; Start 03/05/17 at 22:00 Assessment/Plan Chief Complaint/Hosp Course 1. syncope: etiology unclear. no obvious rhythm abn on tele lexiscan is normal. cont med rx 2. chest pain: lexiscan today 3. HTN; well controlled now 4. hx CVA on antiplatelet Love Rodgers MD Problems: LOVE RODGERS MD Mar 06, 2017 14:44
--- NOTE | 2017-03-06 14:46 | DS ---
DATE OF ADMISSION: 03/03/2017 DATE OF DISCHARGE: 03/06/2017 REASON FOR ADMISSION: Syncope, altered level of consciousness. HISTORY: The patient was admitted initially on 03/01/2017 under observation and now discharged on 03/06/2017. HOSPITAL COURSE: The patient is a 66-year-old, -[place] female with history of CVA with left hemiplegia, hypertension, COPD, actively smoking and chronic pain syndrome, gastritis, hiatal hernia, dyslipidemia, and neuropathy, who resides at [facility]. Patient was in her usual state of health up until the evening of 03/01/2017 when after smoking outside, she passed out. She was transferred to [facility] for further evaluation, where a CAT scan of the brain revealed a large area of encephalomalacia compatible with remote right MCA territory infarct and ex vacuo dilatation of the right lateral ventricle. No new toxic transcortical ischemic infarct. There is early ischemic injury may be to CT imaging. May recommend MRI. The patient was admitted for further care. She underwent extensive neurological workup including carotid ultrasound, which showed no hemodynamically significant carotid stenosis bilaterally. This was followed later by a brain MRI, which showed the following: Suboptimal motion degraded study. No acute intracranial hemorrhage, infarction or mass. There is large area of encephalomalacia likely represent sequela of old infarct in the right MCA distribution with associated hemosiderin. There is marked chronic small vessel ischemic changes and mild generalized cerebral volume loss. The patient also was complaining of chest pain on and off for the past few months, so I consulted with Dr. Rodgers. In addition, she was found to have a urinary tract infection and dehydration upon presentation. She was started on IV hydration and antibiotics with Rocephin. Urine culture showed E coli, greater than 100,000 sensitive to cephalosporin. The patient appeared clinically improved. The tox screen was negative, only positive for opiates. This patient asked to take opiates for chronic pain. Alcohol level was undetected. Because of her chest pain a nuclear stress test was ordered and showed the following: Negative and myocardial AR profusion scan; there is no evidence of reversible ischemia. There is normal wall motion with normal ejection fraction of 88 percent. PLAN: To discontinue IV antibiotics. DISCHARGE MEDICATIONS: [facility] with the following medications: Tylenol 650 every 6 h as needed. Aspirin 81 mg daily. Colace 100 every 12 hours as needed. Neurontin 300 mg daily. [place] 12/03 every 6h as needed. 50 mg daily. Milk of Magnesia 30 mL as directed daily as needed for constipation. Singular 10 mg daily. Protonix 40 mg daily, we will do that just for 5 days and will discontinue. Ambien 5 mg every night as needed for insomnia. He was given baclofen, can discontinue that too. We will resume simvastatin 20 mg 4 times daily, and vitamin B12 will be prescribed 1000 mcg orally daily. FINAL DIAGNOSES: 1. Syncope, altered level of consciousness. 2. Dehydration. 3. Urinary tract infection. 4. Chest pain. Rule out acute coronary syndrome. 5. Organism E coli. 6. Chronic pain. 7. History of cerebrovascular accident. 8. History of chronic obstructive pulmonary disease decompensated. 9. Hypertension. 10. B12 deficiency. 11. Constipation. 12. Macrocytic anemia. 13. Dyslipidemia. 14. Nicotine dependency. DISCHARGE CONDITION: Patient will be discharged today in fair condition. DIET: Two gram sodium, low fat, low carb diet. ACTIVITY: Activity as tolerated with assistance. Dictated By: Mahesh Grande MD /javier/ramos /Document#: [id number]
== END 2017-03-06 16:35 | DRG 312 ==
LOC: E/R 20:58 → MS3 23:04 → MS4 03-02 21:44 → OBSVTOIN 03-03 14:54
PROVIDERS: ADMIT Internal Medicine; ATTEND Internal Medicine
DX: R55 Syncope and collapse (principal); I69.354 Hemiplegia and hemiparesis following cerebral infarction affecting left non-dominant side; J44.9 Chronic obstructive pulmonary disease, unspecified; I10 Essential (primary) hypertension; D50.9 Iron deficiency anemia, unspecified; F17.200 Nicotine dependence, unspecified, uncomplicated; N39.0 Urinary tract infection, site not specified; B96.20 Unspecified Escherichia coli [E. coli] as the cause of diseases classified elsewhere; K59.00 Constipation, unspecified; G89.4 Chronic pain syndrome; R07.9 Chest pain, unspecified; R41.82 Altered mental status, unspecified; E86.0 Dehydration; E53.8 Deficiency of other specified B group vitamins; E78.5 Hyperlipidemia, unspecified; Z99.3 Dependence on wheelchair
CPT/HCPCS: 70450; 70551; 71010; 78452; 80053; 80061; 80306; 80307; 81001; 82270; 82550; 82553; 82607; 83036; 83540; 83735; 84100; 84436; 84443; 84479; 84484; 85025; 85045; 85610; 85730; 87086; 93005; 93017; 93306; 93880; 96360; 96361; 96372; 99217; A9500; A9505; G0378; J0696; J1650; J2060; J2270; J2785; J3420; J7040

== ENCOUNTER 2018-08-02 14:55 | Emergency (ER) | payer MEDICARE, OTHER ==
[~2018-08-02] VITALS: Ht 160 cm; Wt 87.7 kg
[~2018-08-02 14:55] MED LIST changes: -ESOM40CA; -FLUT1DIS23; -HIGH BP MED PO; -METO10TA96; -SERT50TA6; -ZOLP5TAB; -[UNRECOGNIZED DRUG - CODE]
[2018-08-02 15:09] VITALS: Ht 160 cm; Wt 87.7 kg
[2018-08-02] MEDS ORDERED: DEXT1DRO7 OP (16:10)
[2018-08-02] MEDS ORDERED: ASPI-903 PO (16:11)
[2018-08-02] MEDS ORDERED: ATOR10TA65 PO (16:11)
[2018-08-02] MEDS ORDERED: CYCL5TAB PO (16:12)
[2018-08-02] MEDS ORDERED: GABA300C16 PO (16:13)
[2018-08-02] MEDS ORDERED: MONT10TA24 PO (16:18)
[2018-08-02] MEDS ORDERED: UDMYL PO (16:19)
[2018-08-02] MEDS ORDERED: HYDR-3980 PO (16:20)
[2018-08-02] MEDS ORDERED: KRIL1CAP3 PO (16:24)
[2018-08-02] MEDS ORDERED: OMEP40CA6 PO (16:25)
[2018-08-02] MEDS ORDERED: TRAZ-111 PO (16:26)
[2018-08-02] MEDS ORDERED: ACET-141 PO (16:27)
[2018-08-02] MEDS ORDERED: ACET325T33 PO (16:27)
[2018-08-02] MEDS ORDERED: ALBU90AE INHALATION (16:30)
--- NOTE | 2018-08-02 19:18 | ERD ---
ER Documentation Chief Complaint Chief Complaint intermittent sob for unknown amount of time. 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 The patient has been complaining of chest pain for the past several days. She states it is left substernal. She states the chest pain does not radiate to her arm or back. Contrary to the triage note the patient does not state chest pain radiates down her leg. The patient resides in a nursing facility and was transferred to the emergency department by Dr. Richardson for further evaluation. The nursing notes stated that the patient was complaining of shortness of breath upon exertion. However the patient states she is nonambulatory denies any shortness of breath at rest. She had no fevers or shaking or chills. She takes aspirin on a daily basis. She denies any calf tenderness. She said no recent hospitalizations. ROS All systems reviewed and are negative except as per history of present illness. Medications Home Meds Reported Medications Albuterol Sulfate (Proair Respiclick) 90 Mcg Aer.pow.ba, 1 PUFF INHALATION Q6H, #1 BOTTLE 08/02/18 Acetaminophen* (Acetaminophen*) 500 MG Extra Strength Tablet, 1000 MG PO Q4H PRN for PAIN 4-6/10, TAB 08/02/18 Acetaminophen* (Tylenol*) 325 Mg Tablet, 650 MG PO Q4H PRN for MILD PAIN LEVEL 1-3, TAB 08/02/18 Trazodone Hcl* (Trazodone Hcl*) 50 Mg Tablet, 50 MG PO QHS, #30 TAB 08/02/18 Omeprazole* (Omeprazole*) 40 Mg Capsule.dr, 40 MG PO DAILY, #30 CAP 08/02/18 Krill/Om3/Dha/Epa/Om6/Lip/Astx (Krill Oil 1,000 Mg Softgel) 1 Each Capsule, 1 EACH PO DAILY, CAP 08/02/18 Hydrocodone/Acetaminophen ([place] 10-325 Tablet) 1 Each Tablet, 1 EACH PO Q8H PRN for PAIN 8-10/10, TAB 08/02/18 Magaldrate/Simethicone* (Mag-Al Plus Suspension*) 30 Ml Oral.susp, 30 ML PO Q4H PRN for GASTROINTESTINAL UPSET, ML 08/02/18 Montelukast Sodium* (Montelukast Sodium*) 10 Mg Tablet, 10 MG PO QHS, #30 TAB 08/02/18 Gabapentin* (Gabapentin*) 300 Mg Capsule, 300 MG PO DAILY, #60 CAP 08/02/18 Cyclobenzaprine Hcl* (Cyclobenzaprine Hcl*) 5 Mg Tablet, 5 MG PO BID PRN for NEEDED, #60 TAB 08/02/18 Atorvastatin Calcium (Atorvastatin Calcium) 10 Mg Tablet, 10 MG PO QHS, #30 TAB 08/02/18 Aspirin* (Aspirin* Chew) 81 Mg Tab.chew, 81 MG PO DAILY, TAB.CHEW 08/02/18 Dextran 70/Hypromellose/Pf (ARTIFICIAL TEARS DROPS) 1 Each Droperette, 1 EACH OP TID 08/02/18 Discontinued Reported Medications Gabapentin* (Gabapentin*) 300 Mg Capsule 01/03/11 Baclofen* (Baclofen*) 10 Mg Tablet 01/03/11 Simvastatin (Simvastatin) 20 Mg Tablet 01/03/11 Aspirin Ec (Aspir 81) 81 Mg Tablet. 01/03/11 Montelukast Sodium* (Singulair*) 10 Mg Tablet 01/03/11 Albuterol/Ipratropium (Combivent) 14.7 Gm Inha 01/03/11 Allergies Allergies: Coded Allergies: No Known Drug Allergies (Unverified Allergy, Mild, 08/02/18) PMhx/Soc History of Surgery: Yes (BILATERAL ARCH CONSTRUCTION TO FEET) Anesthesia Reaction: No Hx Neurological Disorder: No Hx Respiratory Disorders: No Hx Cardiac Disorders: Yes (HIGH BLOOD PRESSURE) Hx Psychiatric Problems: No Hx Miscellaneous Medical Probl: No Hx Alcohol Use: No (DRINKING IN THE PAST) Hx Substance Use: No Hx Tobacco Use: No Smoking Status: Never smoker Physical Exam Vitals Vital Signs Date Temp Pulse Resp B/P (MAP) Pulse Ox O2 O2 Flow FiO2 Time Delivery Rate 08/02/18 98.0 70 18 140/70 98 Room Air 18:30 (93) 08/02/18 98.2 71 20 141/71 97 Room Air 15:33 (94) 08/02/18 98.2 95 20 140/65 97 15:09 (90) Physical Exam Constitutional:Well-developed. Well-nourished. HEENT:Normocephalic. Atraumatic.Pupils were equal round reactive to light. Moist mucous membranes.No tonsillar exudates. Neck: No nuchal rigidity. No lymphadenopathy. No posterior cervical spine tenderness or step-offs. Respiratory: Not using accessory muscles of respiration.Lungs were clear to auscultation bilaterally. No rhonchi. No rales. No wheezing. Cardiovascular: Regular rate regular rhythm.No murmurs. No rubs were appreciated.S1, S2 normal. Distal pulses are palpable 2+ bilaterally. Left substernal chest wall tenderness with no crepitus no ecchymosis no flail chest and no overlying skin changes. GI: Abdomen was soft. Nontender. Non Distended. No pulsatile abdominal masses or bruits. No rebound. No guarding. Bowel sounds were present and normal. Muscle skeletal: .Normal muscle tone.No assymetrical calf tenderness or swelling. Skin: No petechia, no purpura. No lesions on the palms or the soles of the feet. No maculopapular rash. NEURO: Patient was alert, awake, orientated x3.No facial droop. Gait not observed as patient is unable to ambulate..Speech had regular rate and rhythm. No focal neurological deficits. Result Diagram: 08/02/18 1622 08/02/18 1622 Results 24 hrs Laboratory Tests Test 08/02/18 16:22 08/02/18 19:00 White Blood Count 5.6 10^3/ul Red Blood Count 4.30 10^6/ul Hemoglobin 13.1 g/dl Hematocrit 41.7 % Mean Corpuscular Volume 97.0 fl Mean Corpuscular Hemoglobin 30.5 pg Mean Corpuscular Hemoglobin Concent 31.4 g/dl Red Cell Distribution Width 13.6 % Platelet Count 230 10^3/UL Mean Platelet Volume 11.0 fl Immature Granulocytes % 0.400 % Neutrophils % 59.2 % Lymphocytes % 25.7 % Monocytes % 8.0 % Eosinophils % 5.1 % Basophils % 1.6 % Nucleated Red Blood Cells % 0.0 /100WBC Immature Granulocytes # 0.020 10^3/ul Neutrophils # 3.3 10^3/ul Lymphocytes # 1.5 10^3/ul Monocytes # 0.5 10^3/ul Eosinophils # 0.3 10^3/ul Basophils # 0.1 10^3/ul Nucleated Red Blood Cells # 0.0 10^3/ul Prothrombin Time 12.4 Sec Prothrombin Time Ratio 1.0 INR International Normalized Ratio 0.91 Activated Partial Thromboplast Time 30.2 Sec Sodium Level 144 mmol/L Potassium Level 3.7 mmol/L Chloride Level 113 mmol/L Carbon Dioxide Level 24 mmol/L Anion Gap 7 Blood Urea Nitrogen 14 mg/dl Creatinine 0.80 mg/dl Est Glomerular Filtrat Rate mL/min > 60 mL/min Glucose Level 120 mg/dl Calcium Level 9.6 mg/dl Total Bilirubin 0.1 mg/dl Direct Bilirubin 0.00 mg/dl Indirect Bilirubin 0.1 mg/dl Aspartate Amino Transf (AST/SGOT) 15 IU/L Alanine Aminotransferase (ALT/SGPT) 12 IU/L Alkaline Phosphatase 148 IU/L Creatine Kinase 57 IU/L Creatine Kinase Index 1.5 Creatinine Kinase MB (Mass) 0.87 ng/ml Troponin I < 0.012 ng/ml B-Type Natriuretic Peptide 214 PG/ML Total Protein 7.3 g/dl Albumin 4.0 g/dl Globulin 3.30 g/dl Albumin/Globulin Ratio 1.21 Lipase 52 U/L Urine Color STRAW Urine Clarity CLEAR Urine pH 5.0 Urine Specific [place] 1.006 Urine Ketones NEGATIVE mg/dL Urine Nitrite NEGATIVE mg/dL Urine Bilirubin NEGATIVE mg/dL Urine Urobilinogen NEGATIVE mg/dL Urine Leukocyte Esterase NEGATIVE [place]/ul Urine Hemoglobin NEGATIVE mg/dL Urine Glucose NEGATIVE mg/dL Urine Total Protein NEGATIVE mg/dl Procedures/MDM The patient presented to the emergency department complaining of chest pain. My clinical evaluation and workup was to distinguish minor causes of chest pain from acute life threatening cardiopulmonary causes such as myocardial infarction, pulmonary embolism, aortic dissection, esophageal rupture, cardiac tamponade, The patient was placed on a monitoring engineer, continuous pulse oximetry and IV access established by nursing staff. The patient was given aspirin. 12 Lead EKG tracing ordered and reviewed by myself showed: Normal sinus rhythm of 93 bpm and no arrhythmia. AR interval normal. QRS duration normal. No ST segment elevation No ST segment depression. No changes consistent with acute ischemia. I obtained a chest radiograph which showed mild atelectasis but no infiltrates no pneumothorax no pleural effusions. The patient was requesting a straight cath and urinalysis was obtained. There is no evidence of urinary tract infection. Dr. Grande was kind enough to come to the bedside and evaluate the patient. We both felt that the patient was stable to be discharged back to her intermediate facility. He will receive further outpatient treatment. There is no evidence of a myocardial infarction. The patients chest pain was reproduced by palpation and horizontal flexion of the arms. It was my clinical impression that the pain was a result of inflammation of the skin and subcutaneous structures of the chest wall versus myocardial ischemia. I felt the patient had low-risk chest pain and could therefore be safely discharged with close follow-up. Departure Diagnosis: Primary Impression: Acute costochondritis Condition: Fair Patient Instructions: Costochondritis Referrals: TIFFANIE GRANDE MD (PCP) LUIS CELIS MD Aug 02, 2018 19:17
[2018-08-02 20:33] VITALS: BP 153/75; PULSE 84; RESP 18
== END 2018-08-02 20:33 | disposition home or self-care (01) ==
LOC: E/R 14:55
DX: M94.0 Chondrocostal junction syndrome [Tietze] (principal); I10 Essential (primary) hypertension; R07.9 Chest pain, unspecified; Z79.82 Long term (current) use of aspirin; Z86.73 Personal history of transient ischemic attack (TIA), and cerebral infarction without residual deficits
CPT/HCPCS: 36415; 51702; 71045; 80053; 81003; 82550; 82553; 83690; 83880; 84484; 85025; 85610; 85730; 87086; 93005; 99285; A4310